=== PATIENT | male | born 1960 | race Two or more races ===

== ENCOUNTER 2017-05-16 09:33 | Emergency (ER) | payer MEDICAID ==
[~2017-05-16] VITALS: Ht 172.7 cm; Wt 68.0 kg
[2017-05-16] MEDS ORDERED: SODIUM CHLORIDE 0.9% 1,000 ML IV ONE (10:02)
[2017-05-16] MEDS ORDERED: KETOROLAC TROMETH 30 MG/ML 1ML VIAL IV ONE (10:15)
[2017-05-16] MEDS ORDERED: PROMETHAZINE HCL 25 MG/ML 1ML IV ONE (10:15)
[2017-05-16] MEDS ORDERED: VANCOMYCIN 1GM/250ML 250 ML IV ONE (10:15)
[2017-05-16 10:20] LABS: Red Cell Distribution Width 13.7 % (11.8-14.3)
[2017-05-16 10:23] LABS: Hematocrit 46.2 % (41.0-53.0); Hemoglobin 15.7 g/dL (13.5-17.5); Mean Corpuscular Hemoglobin 30.2 pg (28.0-32.0); Mean Corpuscular Volume 88.6 fL (80.0-100.0); Platelet Count (auto) 340 10^3/uL (140-450); Red Blood Cells 5.21 10^6/uL (4.5-5.90)
[2017-05-16 10:42] LABS: White Blood Cell 33.4 10^3/uL (4.4-10.8)
[2017-05-16 10:43] LABS: Basophils % (manual) 0 (0.0-2.0); Blast Cells 0; Eosinophils % (manual) 0 (0-7); Metamyelocytes % 0; Myelocytes % 0; Promyelocytes % 0; Reactive Lymphocytes 0
[2017-05-16] MEDS ORDERED: NALBUPHINE HCL 10 MG/1ml INJECTION IV ONE (10:45)
[2017-05-16 10:46] LABS: Albumin 3.9 g/dL (3.4-5.0); BUN/Creatinine Ratio 8.4; Bilirubin, Total 1.3 mg/dL (0.2-1.0); Calcium 9.6 mg/dL (8.5-10.1); Potassium 3.5 mmol/L (3.5-5.1); Total Protein 8.8 g/dL (6.4-8.2)
[2017-05-16 11:38] LABS: Band Neutrophils % (manual) 9; Lymphocytes % (manual) 6 (10.0-50.0); Monocytes % (manual) 11 (0-12)
[2017-05-16] MEDS ORDERED: TETANUS-DIPTH-ACEL PERTUSSIS 0.5ML SYRG IM ONE (12:45)
[2017-05-16 13:23] VITALS: BP 99/59
== END 2017-05-16 13:41 | disposition left against medical advice (07) ==
LOC: ER 09:33
DX: S41.132A Puncture wound without foreign body of left upper arm, initial encounter (principal); A41.9 Sepsis, unspecified organism; L08.9 Local infection of the skin and subcutaneous tissue, unspecified; L03.114 Cellulitis of left upper limb; X58.XXXA Exposure to other specified factors, initial encounter; Y93.89 Activity, other specified; Y99.8 Other external cause status; Y92.89 Other specified places as the place of occurrence of the external cause; Z53.29 Procedure and treatment not carried out because of patient's decision for other reasons
CPT/HCPCS: 36415; 71020; 73200; 80053; 83735; 84443; 85007; 85027; 87040; 90715; 93005; 96361; 96365; 96372; 96375; 99285; J1885; J2300; J2550; J3370; J7030